=== PATIENT | female | born 1955 | race Two or more races ===

== ENCOUNTER 2016-09-24 09:34 | Observation (INO) | payer OTHER ==
[~2016-09-24] VITALS: Ht 180.3 cm; Wt 116.6 kg
[2016-09-24] VITALS (10 sets, daily range): BP systolic 107–140; BP diastolic 62–84
[~2016-09-24 09:34] MED LIST: ASPIRIN EC325 MG ORAL; CARDIZEM CD240 MG ORAL; METFORMIN HCL1000 M1 ORAL
[2016-09-24] MEDS ORDERED: EPINEPHrine 1mg/1ml Amp ONE (10:24)
[2016-09-24] MEDS ORDERED: Bupivacaine w/Epi 0.25% 30ml Vial INJ ONE (10:24)
[2016-09-24] MEDS ORDERED: Bupivacaine w/Epi 0.5% 30ml Vial INJ ONE (10:25)
[2016-09-24] MEDS ORDERED: Ropivacaine 5mg/ml Vial 20ml INJ ONE (10:37)
--- NOTE | 2016-09-24 10:48 | Anethesia Preoperative Eval ---
Anesthesia Pre-op PMH/ROS General Date of Evaluation: September 24, 2016 Time of Evaluation: 11:06 Anesthesiologist: Jaime ASA Score: ASA 3 Mallampati Score Class I : Soft palate, uvula, fauces, pillars visible Class II: Soft palate, uvula, fauces visible Class III: Soft palate, base of uvula visible Class IV: Only hard plate visible Mallampati Classification: Class II Surgeon: Ross Diagnosis: R Shoulder Pain Surgical Procedure: R Shoulder Arthroscopy, Rotator Cuff Repair Anesthesia History: none Family History: no anesthesia problems Allergies: Coded Allergies: CODEINE (Verified Adverse Reaction, Severe, severe pain , 09/24/16) Medications: see eMAR Past Medical History Cardiovascular: Reports: HTN, arrhythmia - PSVT Gastrointestinal/Genitourinary: Reports: GERD Endocrine: Reports: DM Other: obesity - BMI 36 PSxH Narrative: Cholecystectomy, R Knee Arthroscopy Anesthesia Pre-op Phys. Exam Physician Exam Last Vital Signs Date Time Temp Pulse Resp B/P Pulse Ox O2 Delivery O2 Flow Rate FiO2 09/24/16 10:28 97.8 69 18 140/84 96 Room Air Constitutional: NAD Neurologic: CN 2-12 intact Cardiovascular: RRR Respiratory: CTA Gastrointestinal: S/NT/ND Airway Exam Mallampati Score: Class II MO: full ROM: limited Teeth: intact Anesthesia Pre-op A/P Risk Assessment & Plan Assessment: ASA 3 Plan: GA, BIS, Glidescope Status Change Before Surgery: No Pre-Antibiotics Dru Grams Ancef IV Given Within 1 Hr of Incision: Yes Time Given: 11:31 Adrián Sandoval MD September 24, 2016 10:48
[2016-09-24] MEDS ORDERED: Lidocaine 1% MPF 10mg/ml 5ml ONE (11:00)
[2016-09-24] MEDS ORDERED: Propofol 10mg/ml 20ml IV ONE (11:00)
[2016-09-24] MEDS ORDERED: Midazolam 2mg/2ml Inj ONE (11:00)
[2016-09-24] MEDS ORDERED: LR 1000ml ONE (11:00)
[2016-09-24] MEDS ORDERED: fentaNYL 100 mcg/2 mL IV ONE (11:00)
--- NOTE | 2016-09-24 11:19 | Pre-Procedure Note/Attestation ---
Pre-Procedure Note/Attestation Complete Prior to Procedure Planned Procedure: right Procedure Narrative: Right shoulder surgical arthroscopy with extensive debridement; removal of loose bodies; acromioplasty SAD; rotator cuff repair; biceps tenotomy and possible tenodesis ; Partial distal claviculectomy; intrscalene block Indications for Procedure Pre-Operative Diagnosis: rotator cuff tear; biceps tear; impingement syndrome; loose body Attestation I attest that I discussed the nature of the procedure; its benefits; risks and complications; and alternatives (and the risks and benefits of such alternatives ), prior to the procedure, with the patient (or the patient's legal route sales representative). I attest that, if there was a reasonable possibility of needing a blood transfusion, the patient (or the patient's legal route sales representative) was given the [place] [facility] [employer] [facility] standardized written summary, pursuant to the [place] Blood Safety Act ([place] Health and Safety Code # 1645, as amended). I attest that I re-evaluated the patient just prior to the surgery and that there has been no change in the patient's H&P, except as documented below: Ludy Hawkins MD September 24, 2016 11:19
[2016-09-24] MEDS ORDERED: EPINEPHrine 30ml ONE (12:00)
--- NOTE | 2016-09-24 12:18 | Immediate Post-Op Evaluation ---
Immediate Post-Op Evalulation Immediate Post-Op Evalulation Procedure: R Shoulder Arthroscopy, Rotator Cuff Repair Date of Evaluation: September 24, 2016 Time of Evaluation: 14:30 IV Fluids: 900 LR Blood Products: 0 Estimated Blood Loss: 25 Urinary Output: 0 Blood Pressure Systolic: 107 Blood Pressure Diastolic: 65 Pulse Rate: 64 Respiratory Rate: 16 O2 Sat by Pulse Oximetry: 94 Temperature (Fahrenheit): 97.2 Pain Score (1-10): 2 Nausea: No Vomiting: No Complications 2 Patient Status: awake, reacts, patent, extubated, none Hydration Status: adequate Dru Grams Ancef IV Given Within 1 Hr of Incision: Yes Time Given: 11:31 Adrián Sandoval MD September 24, 2016 12:18
[2016-09-24] MEDS ORDERED: LR 1000ml 1,000 ML IVLG SCH (14:32)
[2016-09-24] MEDS ORDERED: Ketorolac 30mg Inj IM SCH (14:45)
[2016-09-24] MEDS ORDERED: Meperidine 25mg/0.5ml Inj IV PRN (14:45)
[2016-09-24] MEDS ORDERED: LORazepam Inj 2mg/ml 1ml IV PRN (14:45)
[2016-09-24] MEDS ORDERED: fentaNYL 100 mcg/2 mL IV PRN (14:45)
[2016-09-24] MEDS ORDERED: Metoclopramide 10mg/2ml Inj IVP PRN (14:45)
[2016-09-24] MEDS ORDERED: Midazolam 2mg/2ml Inj IVP PRN (14:45)
[2016-09-24] MEDS ORDERED: Atropine Inj 1mg/10ml Syr IV PRN (14:45)
[2016-09-24] MEDS ORDERED: DiphenhydrAMINE 50mg/ml Inj IVP PRN (14:45)
--- NOTE | 2016-09-24 14:49 | Brief Operative Note ---
Immediate Post Operative Note Operative Note Chief Complaint: R shoulder pain and weakness Pre-op Diagnosis: rotator cuff tear; biceps tear; impingement syndrome; loose body Procedure: R SHOULDER: 1. DX. & SURGICAL ARTHROSCOPY WITH exT. SELENA. 11129 2. ARTH. ROLB 08930 3.[id number] 4.ROTATOR CUFF REPAIR 26498 5.PARTIAL DISTAL CLAVICULECTOMY 87420 6. SSNB 96117 Post-op Diagnosis: SAME Post-op Diagnosis: same as pre-op Surgeon: JUSTA HAWKINS Anesthesiologist: Jesse LAMB Anesthesia: general, regional Specimen: none Complications: none Condition: stable Fluids: CRYSTALLOID 900CC Estimated Blood Loss: minimal Drains: none Implant(s) used?: Yes Ludy Hawkins MD September 24, 2016 14:49
[2016-09-24] MEDS ORDERED: 1/2 NS 1000ml IV ONE (15:31)
[2016-09-24] MEDS ORDERED: Tubing IV Secondary IV ONE (15:31)
[2016-09-24] MEDS: celeBREX 200mg Cap **SURGERY PATIENTS ONLY ORAL SCH (16:52)
[2016-09-24] MEDS: oxyCODONE 5mg IR tab ORAL PRN ×2 (16:53→20:49)
[2016-09-24] MEDS ORDERED: D5 1/2NS 1,000 ML IV SCH ×2 (17:00)
[2016-09-24] MEDS: metFORMIN 500mg tab ORAL SCH (17:51)
[2016-09-24] MEDS: Docusate 100mg cap ORAL SCH (17:52)
[2016-09-24] MEDS: ceFAZolin sod 1 GM in D5W 55 ML IV SCH ×2 (17:52→17:56)
[2016-09-24] MEDS: Enoxaparin 30mg Inj SUBQ SCH (20:17)
[2016-09-25] VITALS: BP 114/62
[2016-09-25] MEDS: ceFAZolin sod 1 GM in D5W 55 ML IV SCH ×2 (02:05→08:47)
[2016-09-25] MEDS: oxyCODONE 5mg IR tab ORAL PRN ×2 (02:44→02:51)
[2016-09-25] MEDS ORDERED: Ketorolac 30mg Inj IM PRN (02:45)
[2016-09-25 04:00] VITALS: BP 115/70
--- NOTE | 2016-09-25 04:46 | Operative Note - Dictated ---
DATE OF OPERATION: 09/24/2016 UNDERCAR SPECIALIST: There is no residential assistant. ANESTHESIOLOGIST: Adrián Sandoval M.D. ANESTHESIA TYPE: General plus regional. PREOPERATIVE DIAGNOSES: 1. Full-thickness rotator cuff tear consisting of the entire supraspinatus footprint, right shoulder (M75.121, M75.120). 2. Right shoulder impingement syndrome (M75.40). 3. Intraarticular loose body, right shoulder (M24.011). 4. 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 POSTOPERATIVE DIAGNOSES: 1. Full-thickness rotator cuff tear consisting of the entire supraspinatus footprint, right shoulder (M75.121, M75.120). 2. Right shoulder impingement syndrome (M75.40). 3. Intraarticular loose body, right shoulder (M24.011). 4. 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 PROCEDURES: 1. Right shoulder surgical arthroscopy with extensive debridement (59916). 2. Arthroscopic removal of loose body (88537). 3. Partial acromioplasty and subacromial decompression with complete bursectomy (59528). 4. Arthroscopic rotator cuff repair using transosseous equivalent and double row suture bridge technique (84273). 5. Arthroscopic partial distal claviculectomy (mini Yojana) (79921) and arthroscopic suprascapular nerve block (64489) and application of fitting of a shoulder abduction orthosis. There are no complications, and counts were correct. SURGICAL INDICATION: The patient is a 60-year-old right-hand dominant female who has developed intractable right shoulder pain and weakness, which affected her activities of daily living. The patient has failed maximum conservative treatment including activity modification, rest, multiple courses and regimens of physical therapy, as well as use of nonsteroidal anti-inflammatory and analgesic medications. This has not alleviated the patient's symptoms. Therefore, after discussing the spectral and all nonsurgical and surgical options and discussing all foreseeable risks, complications, and benefits of surgery, the patient has opted for surgical treatment as described above. On the day of the procedure, the patient was reassessed in the preop holding area. It was ascertained that her neurological and physical exam remained unchanged. Written informed consent was obtained. No warranties or guarantees as to outcome were implied, expressed, or intended. The surgical site was clearly designated and number levels were delineated on the skin with an indelible marker. THE PATIENT POSITIONING: The patient was brought into the operating room and was placed on the table. All pressure points were well padded. A surgical time-out was convened according to universal protocol and the correct patient, procedure, extremity site, equipment personnel, and antibiotics were confirmed. General endotracheal anesthesia was induced by Dr. Sandoval and the patient was then placed in the left lateral decubitus position. A 10 pounds of longitudinal traction was applied. All pressure points were well padded and an axillary roll was placed. The patient's shoulder was then prepped, draped, and isolated in the usual standard sterile fashion. Bony anatomical landmarks were delineated. A 2 grams of intravenous Ancef were administered. The shoulder was examined under anesthesia with all muscles well relaxed. The shoulder was full flexed, abducted and placed through a full range of excellent internal rotation. The anterior, posterior, and inferior instability of the shoulder was checked. The exam revealed no evidence of any adhesive capsulitis or instability. Local suprascapular block, prior to making incision, a suprascapular nerve block was performed. The notch created by palpating the posterior aspect of the clavicle, medial aspect of the acromion, and anterior aspect of the scapular spine was palpated. A 22-gauge needle entered the apex of this notch and was then slightly medial and posterior to the scapular bone. The needle was then retracted and aspiration was negative for any blood. Next, 20 mL of 0.5% bupivacaine with epinephrine was injected in the area to block the suprascapular nerve. Care was given to assure a resistance free injection and avoid intraneural injection. PORTAL PLACEMENT: The posterior pole was established 2 cm posterior and inferior and 1 cm medial to the edge of the posterolateral corner of the acromion. A 1 cm skin incision was made using an #11 blade, and using a blunt obturator after pre-infiltration, the cannula was gently placed to the capsule. The mid glenoid portal was established just lateral to the coracoid process under direct visualization. Direction of the cannula was first established using a spinal needle and subsequently the cannula was placed to the capsule of the blunt obturator. DIAGNOSTIC ARTHROSCOPY: The biceps tendon was probed first and pulled through the joint, but visualization appeared to be normal. The biceps anchor was palpated with probe and was visualized. It appeared to be reasonably well attached with some evidence of infiltration of hyperplastic vascular synovial tissue. The posterior and axillary recess were visualized. There was noted to be some fraying of the posterior labrum and the anterior labrum consistent with a SLAP I tear fraying. The glenoid articular cartilage was visualized and appeared to be essentially normal except for mild degenerative changes. The articular surface of the rotator cuff was visualized and probed next and there was evidence for a full-thickness rotator cuff tear with some degree of retraction extending from the supraspinatus back to the posterior cuff involving the entire supraspinatus footprint. The humeral head was visualized and again appeared to have mild degenerative changes. Next, the anterior labrum, middle glenohumeral ligament, subscapularis tendon, and anterior glenohumeral ligament were visualized and evaluated. These structures were essentially normal again. At this point, the scope was moved to the mid glenoid portal and the posterior structures including the posterior labrum, posterior capsule, and posterior cuff were visualized. These structures were normal. The subscapularis recess was explored next and there was evidence for what appeared to be a granulomatous capsular growth, which was then resected, but not sent off to pathology, which was most likely what was detected on the preoperative MRI as a loose body. The middle and the anterior glenohumeral ligaments were visualized and these structures are completely normal. OPERATIVE DEBRIDEMENTS AND REPAIRS: Care was given to all partial thickness tears and frayed structures including SLAP I diffuse fraying of the superior and anterior posterior labrum and full-thickness rotator cuff tear, which tendon stump was then debrided back to healthy tissue. The frayed rotator cuff tear and labrum were debrided using a motorized shaver initially to the anterior portal and subsequent to the posterior portal to complete the debridement. This allowed for smooth debridement of all affected structures and loose fragments were removed. DIAGNOSTIC BURSOSCOPY AND SUBACROMIAL DECOMPRESSION/ACROMIOPLASTY: The subacromial bursa was then entered from the posterior portal. The anterior portal was established on the CA ligament using a switching stick. Subacromial arthroscopy was then initiated. There was noted to be extensive bursitis and thick and inflamed bursal tissue present. The CA ligament appeared to be scuffed and frayed. Shaver was placed through the anterior cannula and debridement of the hypertrophic bursal tissue was accomplished. Once visualization was adequate, the lateral portal was established using a blunt trocar in the mid portion of the acromion in the anterior-posterior direction approximately 2.5 cm lateral to the lateral edge of the acromion. Using a combination of motorized shaver and electrocautery, the CA ligament was then released from the undersurface of the acromion and a complete bursectomy was accomplished thereby. At this point, subacromial decompression was performed for this type 3 acromial morphology with an anterior beaked hook. Using a motorized bur initially resecting 10 mm of the anterolateral edge of the acromion from the lateral portal and from the posterior portal. Then, the lateral border of the undersurface of the acromion was decompressed to the same depth as the anterolateral edge. The posterior trough was then created and the acromion line with the posterior edge of clavicle. At this point, the scope was placed in the lateral portal and subacromial decompression was performed from the posterior portal decompressing the undersurface of the acromion to the depth of 10 mm. The decompression was performed anterior to the previously marked trough all the way medial to the level of AC joint. At all times, care was taken not to resect too much bone in order to avoid risk of acromial fracture. An excellent subacromial decompression was performed in this fashion. At this point, the bursal sided rotator cuff was examined after thorough debridement, and as the bursa was excised, the rotator cuff was examined with a probe. An awl was then placed in neutral and internal rotation and there was noted to be a large crescent tear of the supraspinatus tendon including the anterior cable measuring the entire footprint of the supraspinatus tendon. The scope was then placed in the posterior portal and subacromial decompression was checked in order to assure that there is no area of bone spur that would be still impinging onto the rotator cuff. EVALUATION OF THE DISTAL CLAVICLE AND DISTAL CLAVICLE RESECTION: Care was given to this on the clavicle. Using a combination of the radiofrequency, electrocautery, and tess, the distal end of the bursa and soft tissues around the distal end of the clavicle were then debrided and cleaned. Care was given not to inflict excessive trauma to the ligaments. Ligaments were stabilized of the AC joint. The distal end of the clavicle appeared to have inferior osteophyte extending down well below the level of the acromion at the level of the AC joint. This appeared to be impinging onto the supraspinatus muscle, the musculotendinous junction of the rotator cuff. The mini Yojana procedure was performed by using a bur to resect the inferior 30% of the distal end of the clavicle. This decompression allowed space for the inferior structures to slide on impingement. This co-planed the inferior edge of the distal clavicle with inferior edge of the acromion. ROTATOR CUFF REPAIR: The arthroscope was then placed in the lateral portal and rotator cuff was visualized. The rotator cuff revealed a large crescent pattern with some degree of retraction. The rotator cuff footprint adjacent to the articular cartilage of the humeral head was identified. This area was then initially debrided using a motorized shaver. Subsequently, a radiofrequency and electrocautery in order to completely debride all the soft tissues down to bone. A motorized bur was used to electively decorticate and provide adequate bleeding bony surface in order to accommodate the rotator cuff supraspinatus tendon. Attention was given to repair the rotator cuff in a careful fashion as possible. At this point, microfracture picks were brought into the field and three vent holes were created in the footprint of the cuff in order to allow for better biological response and healing. A 4.5 millimeter SwiveLock anchor with #2 fiber tapes were then brought in to the field and then an arthroscopic punch from the [employer] set was used to create two sockets for the SwiveLock placement. SwiveLock placement at the medial edge of the footprint through a separate stab wound incision and arthroscopic tap was used to prepare the sockets. Two anchors loaded with #2 fiber tape and fiber wire were then placed in the previously placed sockets. Using advanced arthroscopic antegrade, suture passing instruments and the sutures were then passed 3 mm lateral to the through the musculotendinous junction of the supraspinatus in an antegrade fashion with no trauma to the cuff tissue. Care was taken to have enough blood supply to the rotator cuff for the sutures to hold well. The #2 FiberWire sutures from the anteromedial and posteromedial anchor was then retrieved through the lateral portal and then a surgeon's knot was placed thus providing a medial suture. The other two vents were also tied in a static fashion. Next, each vent, one of the anteromedial and one of the posteromedial suture was then retrieved to the lateral cannula and then passed through a second 4.5 mm SwiveLock anchor and then establishing the double row suture bridge technique approximately 3 to 4 cm lateral to the medial row and then this was secured and placed appropriate amount of tension. In a similar fashion, one limb of each suture was then passed for the posterolateral row anchor, which was similarly placed. The FiberWire sutures securing the anchor islets were then used to also perform a surgeon's knot of the anterior and posterior cables in order to prevent dog-ears. At this point, the arthroscope was placed back into the glenohumeral joint. There was noted to be an excellent coaptation of the previously torn tendon to this footprint in a watertight fashion. The arthroscope was withdrawn. All the portals were then reapproximated using a #4-0 nylon suture in a vertical mattress fashion. Sterile dressing was applied for the application and fitting of a shoulder abduction orthosis and a cold therapy compression unit. The patient tolerated the procedure well without complication, was taken to the recovery room in stable condition. Ludy Hawkins M.D. DR: KAMILA JOB#: [id number] CC: Ludy Hawkins M.D.; Fax#: [phone]
[2016-09-25 08:00] VITALS: BP 126/74
[2016-09-25] MEDS: Docusate 100mg cap ORAL SCH (08:02)
[2016-09-25] MEDS ORDERED: oxyCODONE 5mg IR tab ORAL PRN (08:30)
[2016-09-25] MEDS: celeBREX 200mg Cap **SURGERY PATIENTS ONLY ORAL SCH (08:48)
[2016-09-25] MEDS: metFORMIN 500mg tab ORAL SCH (08:49)
[2016-09-25] MEDS ORDERED: Diltiazem CD 240mg cap ORAL SCH (09:00)
[2016-09-25] MEDS: Enoxaparin 30mg Inj SUBQ SCH (09:02)
[2016-09-27 02:28] VITALS: BP 126/74
--- NOTE | 2016-09-27 02:28 | 48 Hour Post Anesthesia Eval ---
Post Anesthesia Evaluation Procedure: R Shoulder Arthroscopy, Rotator Cuff Repair Date of Evaluation: September 25, 2016 Time of Evaluation: 08:30 Blood Pressure Systolic: 126 0: 74 Pulse Rate: 62 Respiratory Rate: 18 Temperature (Fahrenheit): 96.4 O2 Sat by Pulse Oximetry: 97 Airway: patent Nausea: No Vomiting: No Pain Intensity: 1 Hydration Status: adequate Cardiopulmonary Status: at baseline Mental Status/LOC: patient returned to baseline Post-Anesthesia Complications: 0 Follow-up care needed: ready to discharge KELLE ARAGON M.D. September 27, 2016 02:28
== END 2016-09-25 10:30 | disposition home or self-care (01) ==
LOC: SUR 09:34 → 3E 15:30
DX: M75.101 Unspecified rotator cuff tear or rupture of right shoulder, not specified as traumatic (principal); M75.41 Impingement syndrome of right shoulder; M24.011 Loose body in right shoulder; M19.011 Primary osteoarthritis, right shoulder; K44.9 Diaphragmatic hernia without obstruction or gangrene; K21.9 Gastro-esophageal reflux disease without esophagitis; I47.1 Supraventricular tachycardia; I10 Essential (primary) hypertension; E11.9 Type 2 diabetes mellitus without complications; J30.9 Allergic rhinitis, unspecified; E66.9 Obesity, unspecified; Z68.36 Body mass index [BMI] 36.0-36.9, adult; Z79.82 Long term (current) use of aspirin; Z79.84 Long term (current) use of oral hypoglycemic drugs; Z79.899 Other long term (current) drug therapy; Z88.5 Allergy status to narcotic agent; Z90.49 Acquired absence of other specified parts of digestive tract
CPT/HCPCS: 82962; 94003; 94150; 96360; 96365; G0378; J2180; J2250; J2405